=== PATIENT | female | born 1980 | race Caucasian/White ===

== ENCOUNTER 2017-11-26 15:28 | Emergency (ER) | payer BC ==
[2017-11-26 15:58] VITALS: BP 129/96
[2017-11-26] MEDS ORDERED: Ibuprofen TAB* 600 MG PO ONE (16:23)
[2017-11-26] MEDS ORDERED: Amoxicillin/Clavulanate TAB* 875 MG PO ONE (17:11)
[2017-11-26] MEDS ORDERED: Tetan/Diph/Pertus SYR(Tdap)* 0.5 ML SYR(BOOSTRIX) use SYR IM ONE (17:11)
--- NOTE | 2017-11-26 17:26 | UC ---
Bite Injury/Animal HPI - HPI Summary HPI Summary: 37 yo female broke up a fight between her two dogs Bull dog bit her multiple times Last Td>5 yrs - History of Current Complaint Chief Complaint: UCBiteInjury Stated Complaint: DOG BITE Time Seen by Provider: 11/26/17 17:02 Hx Obtained From: Patient Hx Last Menstrual Period: 11/20/17 Severity Currently: Severe Severity Initially: Severe Pain Intensity: 10 Pain Scale Used: 0-10 Numeric Onset/Duration: Sudden Onset Type of Bite: Pet Has Animal Been Immunized?: Yes Character: Puncture, Full-Thickness, Abrasion/Laceration Aggravating Factor(s): Other - movement Alleviating Factor(s): Rest Associated Signs And Symptoms: Positive: Swelling, Limited ROM Hx of Bite: Provoked by: - breaking up fight Animal Available for Observation: Yes Animal Control Notified: Yes Body - Head: 1 - multiple superficial abrasions/dorsal hand edema 2 - 1 cm lac 3 - pw - Allergies/Home Medications Allergies/Adverse Reactions: Allergies Allergy/AdvReac Type Severity Reaction Status Date / Time latex Allergy Unknown RASHN , Verified 11/26/17 15:42 SWELLING bees Allergy Swelling Uncoded 11/26/17 15:42 PMH/Surg Hx/FS Hx/Imm Hx Previously Healthy: Yes - Surgical History Surgical History: Yes Surgery Procedure, Year, and Place: esure procedure 2012,15 Ear Surgeries FROM THRU CURRENT. 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 GALLBLADDER REMOVAL 10/14/2012, [facility] [place] - Family History Known Family History: Positive: Unknown Family History: PT ADOPTED - Social History Alcohol Use: None Substance Use Type: None Smoking Status (MU): Never Smoked Tobacco - Immunization History Most Recent Tetanus Shot: OVER 5 YEARS AGO Review of Systems Constitutional: Negative Skin: Negative Eyes: Negative ENT: Negative Respiratory: Negative Cardiovascular: Negative Gastrointestinal: Negative Genitourinary: Negative Motor: Negative Neurovascular: Negative Musculoskeletal: Arthralgia, Myalgia Neurological: Negative Psychological: Negative Is Patient Immunocompromised?: No All Other Systems Reviewed And Are Negative: Yes Physical Exam Triage Information Reviewed: Yes Appearance: Well-Appearing, No Pain Distress, Well-Nourished Vital Signs: Initial Vital Signs Temp 98.6 F 11/26/17 15:43 Pulse 116 11/26/17 15:43 Resp 20 11/26/17 15:43 BP 129/96 11/26/17 15:43 Pulse Ox 98 11/26/17 15:43 Vital Signs Reviewed: Yes Eyes: Positive: Conjunctiva Clear ENT: Positive: Hearing grossly normal, Uvula midline. Negative: Nasal congestion, Nasal drainage, Trismus, Muffled voice, Hoarse voice Neck: Positive: Supple, Nontender, No Lymphadenopathy Respiratory: Positive: Lungs clear, Normal breath sounds, No respiratory distress, No accessory muscle use Cardiovascular: Positive: RRR, No Murmur Musculoskeletal: Positive: Edema @ - dorsal hand edema Neurological: Positive: Alert Psychological Exam: Normal Skin Exam: Other - see images Diagnostics - Radiology No standard instances Xray Interpretation: No Acute Changes - bilateral hands Radiology Interpretation Completed By: Radiologist Bite Injury Course/Dx - Differential Dx/Diagnosis Provider Diagnoses: multiple dog bites. bilateral hand contusion. right middle finger laceration- not sutured. right lower leg Punture Wound and abrasion Discharge - Sign-Out/Discharge Documenting (check all that apply): Discharge/Admit/Transfer - Discharge Plan Condition: Stable Disposition: HOME Prescriptions: Amoxicillin/Clavulanate TAB* [Augmentin TAB 875*] 875 mg PO BID #10 tab Ibuprofen TAB* [Motrin TAB*] 600 mg PO Q6H PRN #40 tab PRN Reason: Pain Mupirocin 2% OINT* [Bactroban 2 % Oint*] 1 applic TOPICAL TID #1 tube Patient Education Materials: Animal Bite (ED) Forms: *Work Release Referrals: Varsha Lopez MD [Primary Care Provider] - 2 Days Additional Instructions: elevate elevate elevate gently wash wounds twice daily with soap and water apply bactroban oint recheck for concerns of infection see your MD in 2 days for recheck - Billing Disposition and Condition Condition: STABLE Disposition: Home
--- NOTE | 2017-11-26 17:41 | RAD ---
INDICATION: Dog bites to the bilateral hands COMPARISON: None. TECHNIQUE: 4 views of each hand were obtained. FINDINGS: The adequately corticated bones are in normal alignment. No significant focal osseous abnormality or fracture is seen. Joint spaces appear maintained. IMPRESSION: Normal radiographic series of the bilateral hands. If the patient's symptoms persist, follow-up imaging is recommended.
== END 2017-11-26 18:09 | disposition home or self-care (01) ==
LOC: UCCORT 15:28
DX: S61.212A Laceration without foreign body of right middle finger without damage to nail, initial encounter (principal); S60.222A Contusion of left hand, initial encounter; S60.221A Contusion of right hand, initial encounter; S81.811A Laceration without foreign body, right lower leg, initial encounter; W54.0XXA Bitten by dog, initial encounter; Y93.89 Activity, other specified; Y92.009 Unspecified place in unspecified non-institutional (private) residence as the place of occurrence of the external cause
CPT/HCPCS: 90471; 90715; 99203; A9270-GY; G0463